=== PATIENT | female | born 1950 | race Caucasian/White ===

== ENCOUNTER 2018-01-08 14:32 | Emergency (ER) | payer OTHER ==
[~2018-01-08] VITALS: Ht 177.8 cm; Wt 117.2 kg
[~2018-01-08 14:32] MED LIST: ARAVA10 MG PO; ASPIR 8181 M1 PO; ASPIR-LOW81 MG PO; ASPIRIN81 M2 PO; ATORVASTATIN CA40 MG PO; CAL-CITRATE PL1 EACH PO; CALTRATE 600 +1 EAC1 PO; CELEBREX200 MG PO; CIMZIA400 MG SC; CIMZIA400 MG/2 M PO; CLOBETASOL PROP60 GM TP; CLOPIDOGREL75 MG PO; DAILY VITE1 EAC1 PO; ELAVIL10 MG PO; FENOFIBRATE; FENOFIBRATE145 M1 PO; FLONASE16 G1 BOTH NARES; FLUOXETINE HCL20 MG PO; GLUCOPHAGE1000 MG PO; IMDUR30 MG PO; INVOKAMET 50-11 EACH PO; LEFLUNOMIDE10 MG PO; LISINOPRIL10 MG PO; LOVAZA1 GM PO; LYRICA200 MG PO; MECLIZINE HCL12.5 M1 PO; METFORMIN HCL1000 MG PO; MOBIC15 MG PO; MULTIPLE VITAM1 EACH PO; NITROSTAT0.4 MG SL; PLAVIX75 MG PO; PRAVASTATIN SOD40 MG PO; PRED FORTE100 DROP/5 LEFT EYE; PREDNISONE5 MG PO; PREDNISONE50 MG PO; PRINIVIL10 MG PO; PROZAC20 MG PO; SINGULAIR10 MG PO; SKELAXIN800 MG PO; TRICOR145 MG PO; ULTRAM50 MG PO; VENTOLIN HFA18 GM IH; VITAMIN D-32000 UNI1 PO; VITAMIN D-32000 UNI2 PO
[2018-01-08 16:16] LABS: APPEARANCE CLEAR ((CLEAR)); BILIRUBIN NEGATIVE; BLOOD NEGATIVE; COLOR YELLOW ((YELLOW)); GLUCOSE (STRIP) NEGATIVE; KETONES NEGATIVE; LEUKOCYTES NEGATIVE; NITRITE NEGATIVE; PROTEIN (STRIP) NEGATIVE; SPECIFIC GRAVITY 1.008 (1.000-1.030); UROBILINOGEN 0.2 MG/DL (0.2-1.0)
[2018-01-08 16:33] LABS: HEMATOCRIT 43.4 % (36.0-46.0); HEMOGLOBIN 14.8 G/DL (11.9-15.5); MCH 30.3 PG (29.0-34.0); MCHC 34.1 G/DL (30.0-36.0); MCV 88.8 FL (83-99); PLATELET COUNT 227 K/uL (156-360); RBC DIS.WIDTH-CV 13.2 % (11.8-14.6); RBC DIS.WIDTH-SD 42.7 % (39-53); RED BLOOD COUNT 4.89 M/uL (3.80-5.20); WHITE BLOOD COUNT 9.3 K/uL (4.1-10.2)
[2018-01-08 16:41] LABS: PTT 29.4 SEC (25-37)
[2018-01-08 16:44] LABS: CHLORIDE 104 mEq/L (99-109); POTASSIUM 4.1 mEq/L (3.7-5.4); SODIUM 139 mEq/L (136-147)
[2018-01-08 16:46] LABS: GLUCOSE 127 mg/dL (70-99)
[2018-01-08 16:50] LABS: CREATININE 0.8 mg/dL (0.6-1.3); GFR ESTIMATE (CALCULATED) > 59 mL/min/; UREA NITROGEN (BUN) 17 mg/dL (9-23)
[2018-01-08] MEDS ORDERED: FIORICET 50-301 EAC1 PO (17:30)
[2018-01-08] MEDS ORDERED: ANTIVERT25 MG PO (17:30)
[2018-01-08] MEDS ORDERED: PREDNISONE20 MG PO (19:45)
[2018-01-08] MEDS ORDERED: ZITHROMAX250 MG PO (19:54)
[2018-01-08 20:16] VITALS: BP 145/75
== END 2018-01-08 20:17 | disposition home or self-care (01) ==
LOC: EME 14:32
PROVIDERS: Physician Assistant
DX: S00.03XA Contusion of scalp, initial encounter (principal); S20.229A Contusion of unspecified back wall of thorax, initial encounter; J44.1 Chronic obstructive pulmonary disease with (acute) exacerbation; W01.0XXA Fall on same level from slipping, tripping and stumbling without subsequent striking against object, initial encounter; Y92.481 Parking lot as the place of occurrence of the external cause; Z79.02 Long term (current) use of antithrombotics/antiplatelets; E11.9 Type 2 diabetes mellitus without complications; E78.5 Hyperlipidemia, unspecified; M79.7 Fibromyalgia; I25.10 Atherosclerotic heart disease of native coronary artery without angina pectoris; M06.9 Rheumatoid arthritis, unspecified; F32.9 Major depressive disorder, single episode, unspecified; K21.9 Gastro-esophageal reflux disease without esophagitis; Z95.5 Presence of coronary angioplasty implant and graft; Z88.1 Allergy status to other antibiotic agents; Z87.891 Personal history of nicotine dependence
CPT/HCPCS: 70450; 72128; 80048; 81003; 85027; 85610; 85730; 94640; 94640 76; 99281; 99285; J7512